=== PATIENT | female | born 1950 | race Caucasian/White ===

== ENCOUNTER 2019-02-15 06:43 | Emergency (ER) | payer MEDICARE, MEDICAID ==
[2019-02-15] MEDS ORDERED: Ketorolac 30 MG/ML SDV IM ONE (07:27)
--- NOTE | 2019-02-15 07:29 | EDM.PDOC ---
ED HPI GENERAL MEDICAL PROBLEM - General Chief Complaint: Abdominal Pain Stated Complaint: STOMACH APIN Time Seen by Provider: 02/15/19 07:18 Source of Information: Reports: Patient, RN Notes Reviewed History Limitations: Reports: No Limitations - History of Present Illness INITIAL COMMENTS - FREE TEXT/NARRATIVE: 68-year-old female presents emergency department today complaint of right flank pain, the pain has been waxing and waning for the last week at times it can be very intense results did have an episode of nausea and vomiting 1. 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" - Related Data Allergies Allergy/AdvReac Type Severity Reaction Status Date / Time amoxicillin Allergy Cough Verified 02/15/19 07:24 erythromycin base Allergy Cough Verified 02/15/19 07:24 [From Erythrocin] levofloxacin [From Levaquin] Allergy Cough Verified 02/15/19 07:24 red dye Allergy Cough Verified 02/15/19 07:24 sulfamethoxazole Allergy Cough Verified 02/15/19 07:24 [From Bactrim] thimerosal Allergy Other Verified 02/15/19 07:24 trimethoprim [From Bactrim] Allergy Cough Verified 02/15/19 07:24 Home Meds: Home Meds NK [No Known Home Meds] 02/15/19 [History] Past Medical History Psychiatric History: Reports: Other (See Below) (Chemical sensitivity syndrome) - Past Surgical History GI Surgical History: Reports: Appendectomy Social & Family History - Tobacco Use Smoking Status *Q: Current Every Day Smoker Years of Tobacco use: 40 Packs/Tins Daily: 0.2 ED ROS GENERAL - Review of Systems Review Of Systems: See Below Constitutional: Reports: No Symptoms HEENT: Reports: No Symptoms Respiratory: Reports: No Symptoms Cardiovascular: Reports: No Symptoms GI/Abdominal: Reports: Abdominal Pain, Flatus, Nausea, Vomiting : Reports: Flank Pain Musculoskeletal: Reports: No Symptoms Skin: Reports: No Symptoms Neurological: Reports: No Symptoms ED EXAM, GI/ABD - Physical Exam Exam: See Below Exam Limited By: No Limitations General Appearance: Alert, WD/WN, No Apparent Distress Neck: Normal Inspection, Supple, Non-Tender, Full Range of Motion Respiratory/Chest: No Respiratory Distress, Lungs Clear, Normal Breath Sounds, No Accessory Muscle Use, Chest Non-Tender Cardiovascular: Regular Rate, Rhythm, No Murmur GI/Abdominal Exam: Soft, Non-Tender Back Exam: Normal Inspection, Full Range of Motion, CVA Tenderness (R). No: CVA Tenderness (L), Paraspinal Tenderness, Vertebral Tenderness Course - Vital Signs Last Recorded V/S: Last Vital Signs Temp 95.8 F 02/15/19 07:12 Pulse 84 02/15/19 07:12 Resp 15 02/15/19 07:12 BP 136/59 L 02/15/19 07:12 Pulse Ox 96 02/15/19 07:12 - Orders/Labs/Meds Labs: Laboratory Tests 02/15/19 02/15/19 02/15/19 Range/Units 07:32 07:37 07:37 WBC 7.2 (4.5-11.0) K/uL RBC 4.48 (3.30-5.50) M/uL Hgb 13.4 (12.0-15.0) g/dL Hct 40.8 (36.0-48.0) % MCV 91 (80-98) fL MCH 30 (27-31) pg MCHC 33 (32-36) % Plt Count 320 (150-400) K/uL Neut % (Auto) 77 H (36-66) % Lymph % (Auto) 14 L (24-44) % Love % (Auto) 8 H (2-6) % Eos % (Auto) 1 L (2-4) % Baso % (Auto) 1 (0-1) % Sodium 137 L (140-148) mmol/L Potassium 3.7 (3.6-5.2) mmol/L Chloride 102 (100-108) mmol/L Carbon Dioxide 25 (21-32) mmol/L Anion Gap 13.7 (5.0-14.0) mmol/L BUN 23 H (7-18) mg/dL Creatinine 0.9 (0.6-1.0) mg/dL Est Cr Clr Drug Dosing 46.87 mL/min Estimated GFR (MDRD) > 60 (>60) Glucose 90 (74-106) mg/dL Lactic Acid (0.4-2.0) mmol/L Calcium 8.9 (8.5-10.1) mg/dL Total Bilirubin 0.4 (0.2-1.0) mg/dL AST 29 (15-37) U/L ALT 63 (12-78) U/L Alkaline Phosphatase 209 H (46-116) U/L Troponin I < 0.017 (0.000-0.056) ng/mL Total Protein 7.0 (6.4-8.2) g/dL Albumin 3.1 L (3.4-5.0) g/dL Globulin 3.9 H (2.3-3.5) g/dL Albumin/Globulin Ratio 0.8 L (1.2-2.2) Urine Color Yellow Urine Appearance Clear Urine pH 5.0 (4.5-8.0) Ur Specific [place] 1.015 (1.008-1.030) Urine Protein Negative (NEGATIVE) mg/dL Urine Glucose (UA) Normal (NEGATIVE) mg/dL Urine Ketones Negative (NEGATIVE) mg/dL Urine Occult Blood Trace (NEGATIVE) Urine Nitrite Negative (NEGATIVE) Urine Bilirubin Negative (NEGATIVE) Urine Urobilinogen Normal (NORMAL) mg/dL Ur Leukocyte Esterase Negative (NEGATIVE) Urine RBC 5-10 H (0-5) Urine WBC 0-5 (0-5) Ur Epithelial Cells Few Amorphous Sediment Rare Urine Bacteria Not seen Urine Mucus Not seen 02/15/19 Range/Units 07:37 WBC (4.5-11.0) K/uL RBC (3.30-5.50) M/uL Hgb (12.0-15.0) g/dL Hct (36.0-48.0) % MCV (80-98) fL MCH (27-31) pg MCHC (32-36) % Plt Count (150-400) K/uL Neut % (Auto) (36-66) % Lymph % (Auto) (24-44) % Love % (Auto) (2-6) % Eos % (Auto) (2-4) % Baso % (Auto) (0-1) % Sodium (140-148) mmol/L Potassium (3.6-5.2) mmol/L Chloride (100-108) mmol/L Carbon Dioxide (21-32) mmol/L Anion Gap (5.0-14.0) mmol/L BUN (7-18) mg/dL Creatinine (0.6-1.0) mg/dL Est Cr Clr Drug Dosing mL/min Estimated GFR (MDRD) (>60) Glucose (74-106) mg/dL Lactic Acid 1.0 (0.4-2.0) mmol/L Calcium (8.5-10.1) mg/dL Total Bilirubin (0.2-1.0) mg/dL AST (15-37) U/L ALT (12-78) U/L Alkaline Phosphatase (46-116) U/L Troponin I (0.000-0.056) ng/mL Total Protein (6.4-8.2) g/dL Albumin (3.4-5.0) g/dL Globulin (2.3-3.5) g/dL Albumin/Globulin Ratio (1.2-2.2) Urine Color Urine Appearance Urine pH (4.5-8.0) Ur Specific [place] (1.008-1.030) Urine Protein (NEGATIVE) mg/dL Urine Glucose (UA) (NEGATIVE) mg/dL Urine Ketones (NEGATIVE) mg/dL Urine Occult Blood (NEGATIVE) Urine Nitrite (NEGATIVE) Urine Bilirubin (NEGATIVE) Urine Urobilinogen (NORMAL) mg/dL Ur Leukocyte Esterase (NEGATIVE) Urine RBC (0-5) Urine WBC (0-5) Ur Epithelial Cells Amorphous Sediment Urine Bacteria Urine Mucus Meds: Medications Discontinued Medications Generic Name Dose Route Start Last Admin Trade Name Freq PRN Reason Stop Dose Admin Ketorolac Tromethamine 30 mg 02/15/19 07:27 02/15/19 08:05 Toradol IM 02/15/19 07:28 30 mg ONETIME ONE Administration Departure - Departure Time of Disposition: 09:15 Disposition: Home, Self-Care 01 Condition: Fair Clinical Impression: Functional constipation - Discharge Information Referrals: PCP,None [Primary Care Provider] - Forms: ED Department Discharge Additional Instructions: Try MiraLAX for the constipation this should relieve the abdominal pain, recommend follow-up with your primary care to review your CT scan, call return to the emergency department worsening of symptoms - Assessment/Plan Plan: Assessment Acuity = acute Site and laterality = functional constipation Etiology = slow transit time Manifestations = abdominal pain Location of injury = Home Lab values = CBC, CMP, urinalysis unremarkable CT scan shows moderate amount stool however there is a half centimeter pulmonary nodule recommend follow-up Plan Did review lab work CT scan results with her recommend MiraLAX for her constipation follow-up with primary care to review CT scan This note was dictated using Weeve recognition software please call with any questions on syntax or grammar.
--- NOTE | 2019-02-15 09:08 | CRLCT ---
INDICATION: Right flank pain. TECHNIQUE: Multiple axial images were obtained from the diaphragm to symphysis pubis without contrast. Sagittal and coronal reformatted images were obtained. COMPARISON: None. FINDINGS: There is atelectasis/scarring in both lung bases. The there is a 0.5 cm nodule in the left lower lobe on image #8 of series 2. The liver, spleen, pancreas, gallbladder and adrenal glands are of unremarkable nonenhanced CT appearance. There is a 0.2 cm stone in the lower pole of the left kidney. There is a 0.6 x 0.1 cm stone in the midportion of the left kidney. There is no hydronephrosis. There is no stone seen in the ureters. There is no evidence of a bowel obstruction. There is a moderate amount of stool in the colon. The abdominal aorta is normal in caliber. There are atherosclerotic calcifications. There are degenerative changes in the spine. IMPRESSION: 1. No acute abnormality on CT scan abdomen and pelvis without contrast. 2. Left kidney stones. No ureteral stone or hydronephrosis seen. 3. 0.5 cm pulmonary nodule left lower lobe. Recommend follow-up the Fleischner Society guidelines described below. FLEISCHNER SOCIETY GUIDELINES - SOLID NODULES: SINGLE LOW RISK - nodule less than 6 mm: No routine follow-up. - nodule 6-8 mm: CT at 6-12 months, then consider CT at 18-24 months. - nodule greater than 8 mm: Consider CT at 3 months, PET/CT or tissue sampling. SINGLE HIGH RISK - nodule less than 6 mm: Optional CT at 12 months. - nodule 6-8 mm: CT at 6-12 months, then CT at 18-24 months. - nodule greater than 8 mm: Consider CT at 3 months, PET/CT or tissue sampling. MULTIPLE LOW RISK - nodule less than 6 mm: No routine follow-up. - nodule 6-8 mm: CT at 3-6 months, then consider CT at 18-24 months. - nodule greater than 8 mm: CT at 3-6 months, then consider CT at 18-24 months. MULTIPLE HIGH RISK - nodule less than 6 mm: Optional CT at 12 months. - nodule 6-8 mm: CT at 3-6 months, then at 18-24 months. - nodule greater than 8 mm: CT at 3-6 months, then at 18-24 months. Dictated by Dwayne Toro MD @ 02/15/2019 9:06:06 AM Please note that all CT scans at this facility use dose modulation, iterative reconstruction, and/or weight-based dosing when appropriate to reduce radiation dose to as low as reasonably achievable. Dictated by: Dwayne Toro MD @ 02/15/2019 09:06:17 (Electronically Signed)
== END 2019-02-15 09:37 | disposition home or self-care (01) ==
LOC: JP.ED 06:43
DX: K59.04 Chronic idiopathic constipation (principal); F17.210 Nicotine dependence, cigarettes, uncomplicated; Z88.1 Allergy status to other antibiotic agents; Z88.8 Allergy status to other drugs, medicaments and biological substances; Z91.02 Food additives allergy status
CPT/HCPCS: 36415; 74176; 80053; 81001; 83605; 84484; 85025; 96372; 99284; J1885

== ENCOUNTER 2019-02-19 02:26 | Emergency (ER) | payer MEDICARE, MEDICAID ==
[2019-02-19] MEDS ORDERED: Baclofen 10 MG Tab PO ONE (03:10)
[2019-02-19] MEDS ORDERED: HYDROmorphone 0.5 MG/0.5 ML Syringe IM ONE (03:11)
--- NOTE | 2019-02-19 03:12 | EDM.PDOC ---
ED HPI GENERAL MEDICAL PROBLEM - General Chief Complaint: Back Pain or Injury Stated Complaint: MEDICAL VIA [facility] Time Seen by Provider: 02/19/19 03:12 Source of Information: Reports: Patient History Limitations: Reports: No Limitations - History of Present Illness INITIAL COMMENTS - FREE TEXT/NARRATIVE: pt arrived with increased back pain . sHe is having severe lower back pain. This is not radiating down her legs. Onset: Gradual, Other ( She had the tick bite the end of january. She does have a positive Lymes. ) Duration: Hour(s): Location: Reports: Back Middle to Lower Back Pain Score (Numeric/FACES): 10 - Related Data Allergies Allergy/AdvReac Type Severity Reaction Status Date / Time amoxicillin Allergy Cough Verified 02/15/19 07:24 erythromycin base Allergy Cough Verified 02/15/19 07:24 [From Erythrocin] levofloxacin [From Levaquin] Allergy Cough Verified 02/15/19 07:24 red dye Allergy Cough Verified 02/15/19 07:24 sulfamethoxazole Allergy Cough Verified 02/15/19 07:24 [From Bactrim] thimerosal Allergy Other Verified 02/15/19 07:24 trimethoprim [From Bactrim] Allergy Cough Verified 02/15/19 07:24 Home Meds: Home Meds Doxycycline [Doxycycline Hyclate] 100 mg PO BID 02/19/19 [History] traMADol [Ultram] 50 mg PO Q6H PRN 02/19/19 [History] Past Medical History Musculoskeletal History: Reports: Back Pain, Chronic Psychiatric History: Reports: Other (See Below) (Chemical sensitivity syndrome) - Infectious Disease History Infectious Disease History: Reports: Chicken Pox - Past Surgical History GI Surgical History: Reports: Appendectomy Social & Family History - Tobacco Use Smoking Status *Q: Current Every Day Smoker Years of Tobacco use: 40 Packs/Tins Daily: 0.5 Second Hand Smoke Exposure: Yes - Caffeine Use Caffeine Use: Reports: Coffee - Recreational Drug Use Recreational Drug Use: No ED ROS GENERAL - Review of Systems Review Of Systems: See Below Constitutional: Reports: Weakness HEENT: Reports: No Symptoms Respiratory: Reports: No Symptoms Cardiovascular: Reports: No Symptoms Endocrine: Reports: No Symptoms GI/Abdominal: Reports: No Symptoms : Reports: No Symptoms Musculoskeletal: Reports: Other (pain accross her lower back. It is like a sharp nerve type pain. ) Skin: Reports: No Symptoms Neurological: Reports: No Symptoms Psychiatric: Reports: Anxiety ED EXAM,LOWER BACK PAIN/INJURY - Physical Exam Exam: See Below Text/Narrative:: pt was diagnosed with Lymes Disease on Sunday and was started on doxycline. . She has had 3 doses of the antibiotic. She has been having alot of increased low back pain and tightness. She has a long history of chronic pain from her fibromyalgia. Exam Limited By: No Limitations General Appearance: Alert, Moderate Distress, Other (pt is not able to rest ofr relax. ) Ears: Normal TMs Nose: Normal Inspection Throat/Mouth: Normal Inspection Head: Atraumatic Neck: Normal Inspection Respiratory/Chest: No Respiratory Distress Cardiovascular: Regular Rate, Rhythm GI/Abdominal: Soft (Female) Exam: Deferred Back Exam: Paraspinal Tenderness, Other ( The tenderness appears to be more on the rt than the left. ) Extremities: Normal Inspection Neurological: Alert Psychiatric: Anxious Course - Vital Signs Last Recorded V/S: Last Vital Signs Temp 35.8 C 02/19/19 02:27 Pulse 82 02/19/19 02:27 Resp 16 02/19/19 02:27 BP 130/74 02/19/19 02:27 Pulse Ox 95 02/19/19 02:27 - Orders/Labs/Meds Labs: Laboratory Tests 02/19/19 02/19/19 Range/Units 03:18 03:18 WBC 6.4 (4.5-11.0) K/uL RBC 4.61 (3.30-5.50) M/uL Hgb 13.8 (12.0-15.0) g/dL Hct 41.2 (36.0-48.0) % MCV 89 (80-98) fL MCH 30 (27-31) pg MCHC 34 (32-36) % Plt Count 357 (150-400) K/uL Neut % (Auto) 69 H (36-66) % Lymph % (Auto) 18 L (24-44) % [place] % (Auto) 11 H (2-6) % Eos % (Auto) 1 L (2-4) % Baso % (Auto) 1 (0-1) % Sodium 138 L (140-148) mmol/L Potassium 4.2 (3.6-5.2) mmol/L Chloride 101 (100-108) mmol/L Carbon Dioxide 26 (21-32) mmol/L Anion Gap 15.2 H (5.0-14.0) mmol/L BUN 20 H (7-18) mg/dL Creatinine 0.9 (0.6-1.0) mg/dL Est Cr Clr Drug Dosing 46.87 mL/min Estimated GFR (MDRD) > 60 (>60) Glucose 94 (74-106) mg/dL Calcium 8.9 (8.5-10.1) mg/dL Total Bilirubin 0.3 (0.2-1.0) mg/dL AST 30 (15-37) U/L ALT 48 (12-78) U/L Alkaline Phosphatase 174 H (46-116) U/L C-Reactive Protein 2.35 H (0.0-0.3) mg/dL Total Protein 6.8 (6.4-8.2) g/dL Albumin 3.1 L (3.4-5.0) g/dL Globulin 3.7 H (2.3-3.5) g/dL Albumin/Globulin Ratio 0.8 L (1.2-2.2) Meds: Medications Discontinued Medications Generic Name Dose Route Start Last Admin Trade Name Freq PRN Reason Stop Dose Admin Baclofen 10 mg 02/19/19 03:10 02/19/19 03:18 Lioresal PO 02/19/19 03:11 10 mg ONETIME ONE Administration Hydromorphone HCl 0.5 mg 02/19/19 03:11 02/19/19 03:19 Dilaudid IM 02/19/19 03:12 0.5 mg ONETIME ONE Administration - Re-Assessments/Exams Free Text/Narrative Re-Assessment/Exam: 02/19/19 04:12 pt has fairly normal looking lab work. Her crp is elevated and slightly greatwr than 2. She was given dilaudid .5 and she had fair relief. She was also given baclofen 10 mg. Departure - Departure Time of Disposition: 06:55 Disposition: Home, Self-Care 01 Condition: Fair Clinical Impression: Low back pain, Acute Lyme disease, Fibromyalgia - Discharge Information Instructions: Chronic Back Pain, [id number] Referrals: PCP,None [Primary Care Provider] - Forms: ED Department Discharge Care Plan Goals: moist warm packs to low back, baclofen 10 mg bid to relax muscles, motrin 600mg tis with food, percocet 5/325 q8h prn for severe pain, cont other meds.
== END 2019-02-19 07:23 | disposition home or self-care (01) ==
LOC: JP.ED 02:26
DX: M54.5 Low back pain (principal); A69.20 Lyme disease, unspecified; M79.7 Fibromyalgia; F17.210 Nicotine dependence, cigarettes, uncomplicated; Z88.1 Allergy status to other antibiotic agents; Z91.041 Radiographic dye allergy status; Z88.8 Allergy status to other drugs, medicaments and biological substances; Z79.899 Other long term (current) drug therapy
CPT/HCPCS: 36415; 80053; 85025; 86140; 96372; 99283; A9270; J1170

== ENCOUNTER 2019-05-29 07:33 | Day surgery (SDC) | payer MEDICARE, MEDICAID ==
[2019-05-29] MEDS ORDERED: Sodium Chloride 0.9% 10 ML Syringe FLUSH PRN (08:00)
--- NOTE | 2019-05-29 12:28 | OR ---
DATE OF PROCEDURE: 05/29/2019 SURGEON: Renea Smart MD POSTOPERATIVE CARE: Postoperative care will be provided mainly at the [address] [place] [address] [facility] in conjunction with [facility]. PREOPERATIVE DIAGNOSIS: Cataract, right eye. POSTOPERATIVE DIAGNOSIS: Cataract, right eye. PROCEDURE: Phacoemulsification with intraocular lens placement, right eye. ANESTHESIA: Topical and intracameral. ESTIMATED BLOOD LOSS: Minimal. COMPLICATIONS: None. PATHOLOGY SPECIMENS: None. SURGICAL FINDINGS: None. INDICATION FOR PROCEDURE: The patient is a 68-year-old female with history of a visually significant cataract in the right eye, which interfered with activities of daily living. This consisted of a nuclear sclerosis cataract. Following careful discussion of the risks, benefits and alternatives to cataract extraction with intraocular lens placement including blindness and , the patient elected to proceed, and informed, written consent was obtained prior to the procedure. DESCRIPTION OF THE PROCEDURE: The patient was previously identified, and a dena placed above the right eye. All sources, including the patient, indicated that the right eye was the correct eye. The patient was subsequently taken to the operating room where standard monitors were applied. The patient was then prepped and draped in the usual sterile fashion for ophthalmic surgery. Attention was first directed at the 12 o'clock position where a paracentesis port was fashioned. Shugar solution followed by Viscoat was instilled into the eye. Attention was then directed to the 8:30 position where a triplanar incision was made in a near-clear manner using a keratome. A continuous capsulorrhexis was then made using a combination of the cystotome and Utrata forceps. Hydrodissection was achieved using a balanced salt solution, and the lens rotated nicely. Phacoemulsification was then done using a modified [id number] technique without complication. Phaco time was 5.12 CDE. The remaining cortex was removed using the irrigation/aspiration handpiece. Provisc was then instilled into the eye. A Technis lens, model [id number], at 15.0 diopters was then placed in the capsular bag using an [place] injector. The remaining viscoelastic was removed using the irrigation/aspiration forceps. All wounds were then checked and found to be watertight. The lid speculum and drapes were removed. Maxitrol ointment was placed in the patient's right eye, and the eye was shielded. The patient tolerated the procedure well. The patient was instructed to follow up tomorrow. All needle and sponge counts were correct at the end of the procedure. Renea Smart MD /[id number]
== END 2019-05-29 09:46 | disposition home or self-care (01) ==
LOC: JP.SDS 07:33
PROVIDERS: ATTEND Ophthalmology
DX: H25.11 Age-related nuclear cataract, right eye (principal); F17.210 Nicotine dependence, cigarettes, uncomplicated
CPT/HCPCS: 66984; V2632